=== PATIENT | female | born 1940 | race Caucasian/White ===

== ENCOUNTER → 2018-03-05 | Outpatient (CLI) | payer OTHER ==
--- NOTE | ~2018-03-05 | EXE ---
[facility] [address] [place] [address] STRESS ECHOCARDIOGRAM Name: CAMMY HOLT Room #: [facility]#: [id number] Admission: 03/05/18 Attend Phys: Bakari Barragan, Discharge: Date of : 42 Date of Service: 03/05/18 1205 Report #: [id number] THIS REPORT FOR: //name// APPROVED REPORT Study performed: 03/05/2018 10:18:35 Exam: Stress Echocardiogram Indication: Chest pain Patient Location: Out-Patient Stress Nurse: Jelena Dotson RN Status: routine Ht: 5 ft 6 in HR: 55 bpm BP: 160/88 mmHg Rhythm: NSR Medical History Allergies: No known drug allergies Cardiac Risk Factors: HTN, Hyperlipidemia Procedure The patient underwent an Exercise Stress Test using the Ulisses Protocol. Blood pressure, heart rate, and EKG were monitored. An Echocardiogram was performed by monitor technician in four stages in quad fashion. At peak stress, four selected images were obtained and placed side by side with resting images for comparison. Stress Test Details Stress Test: Exercise stress testing was performed using a Ulisses protocol. HR Resting HR: 55 bpm Max Heart Rate (APMHR): 144 bpm Max HR Achieved: 123 bpm Target HR (85% APMHR): 122 bpm % of APMHR: 85 Recovery HR: 65 bpm HR response to stress: Normal HR response to stress BP Resting BP: 160/88 mmHg Max BP: 184/90 mmHg Recovery BP: 158/90 mmHg ECG Resting ECG: Sinus Rhythm [facility] [address] [place] [address] STRESS ECHOCARDIOGRAM Name: CAMMY HOLT Room #: [facility]#: [id number] Admission: 03/05/18 Attend Phys: Bakari Barragan, Discharge: Date of : 42 Date of Service: 03/05/18 1205 Report #: [id number] Stress ECG: Occasional PVC's ST Change: Normal Maximum ST Deviation: 0 mm Recovery ECG: Sinus Rhythm Recovery ST Change: Normal Recovery ST Deviation: 0 mm Clinical Reason for Termination: moderate fatigue and dyspnea Stress Symptoms: Dyspnea Exercise duration: 7 min 15 sec Highest Stage Achieved: Stage 3: 3.4 mph at 14% grade. Exercise capacity: 10.10 METs Angina Score: None Stress ECG Conclusion Clinical: Non-ischemic ECG: Non-ischemic Venegas Treadmill Score is 7.0 which is Low risk. Pre-Stress Echo The resting Echocardiogram showed normal left ventricular contractility with an estimated Ejection Fraction of about 60%. Left ventricular hypertrophy. Mild MR, mild TR, trivial TR. Post-Stress Echo The stress Echocardiogram showed normal left ventricular contractility with an estimated Ejection Fraction of about 65-70%. Conclusion Clinical Response: Non-ischemic Exercise Capacity: Average Stress ECG Response: Non-ischemic Stress Echo Images: Non-ischemic The left ventricle is normal in size and wall thickness in both the rest and stress images. Normal stress echocardiogram with maximal exercise stress. Other Information Study Quality: Adequate <Conclusion> The left ventricle is normal in size and wall thickness in both the [facility] [address] [place] [address] STRESS ECHOCARDIOGRAM Name: CAMMY HOLT Room #: [facility] [id number] Admission: 03/05/18 Attend Phys: Bakari Barragan, Discharge: Date of : 42 Date of Service: 03/05/181204 Report #: [id number] rest and stress images. Normal stress echocardiogram with maximal exercise stress. <ELECTRONICALLY SIGNED> By: Bakari Barragan MD, [facility] 03/05/185 04 04 Bakari Barragan MD, FACC /INF
== END ==
LOC: CV 09:52
DX: R07.9 Chest pain, unspecified (principal)